=== PATIENT | female | born 1935 | race Caucasian/White ===

== ENCOUNTER 2018-03-24 13:14 | Inpatient (IN) | payer OTHER ==
[2018-03-24] VITALS (8 sets, daily range): BP systolic 115–142; BP diastolic 47–72
--- NOTE | ~2018-03-24 | EKG ---
[place], [place] ELECTROCARDIOGRAM REPORT NAME: ERI PATEL UNIT #: [id number] ROOM: 511 DOCTOR: PADMA DRAFT REPORT BIRTHDATE: [birth year] [facility] Test Date: 2018-03-24 Test Time: 13:55:09 Pat Name: ERI PATEL Department: Room: 511 Gender: F Environmental Conservation Officer: Ana Madsen : 1935 Requested By: ELIZA GOMEZ Order Number: [id number] Reading MD: John Calle MD Measurements Intervals [place] Rate: 79 P: 64 RI: 173 QRS: 71 QRSD: 88 T: 71 QT: 366 QTc: 420 Interpretive Statements Sinus rhythm Electronically Signed On 03-25-2018 16:15:42 PST by John Calle MD CM:EKGRPT:ELECTROCARDIOGRAM REPORT [id number] ELIZA GOMEZ MD EPIPHANY DRAFT REPORT ELIZA GOMEZ MD
[~2018-03-24 13:14] MED LIST: KEFLEX500 MG PO; LISINOPRIL HCTZ1 TA1 PO
[2018-03-24 14:11] LABS: BASO # 0.1 10*3/uL (0.0-0.1); BASO % 0.7 % (0.0-1.0); EOS # 0.2 10*3/uL (0.0-0.4); EOS % 2.5 % (1.0-4.0); HEMATOCRIT 37.9 % (37.0-47.0); HEMOGLOBIN 12.8 g/dl (12.0-16.0); LYMPH # 1.5 10*3/uL (1.3-4.4); LYMPH % 18.2 % (27.0-41.0); MEAN CELL VOLUME 90.9 fl (81.0-99.0); MEAN CORPUSCULAR HGB 30.7 pg (27.0-31.0); MEAN CORPUSCULAR HGB CONC 33.8 g/dl (33.0-37.0); MEAN PLATELET VOLUME 9.6 fl (9.6-12.3); MONO # 0.8 10*3/uL (0.1-1.0); MONO % 9.7 % (3.0-9.0); NEUT # 5.7 10*3/uL (2.3-7.9); NEUT % 68.7 % (47.0-73.0); PLATELET COUNT AUTOMATED 329 10*3/uL (130-400); RED BLOOD COUNT 4.17 10*6/uL (4.10-5.10); RED CELL DISTRI WIDTH 14.3 % (0-14.5); WHITE BLOOD COUNT 8.4 10*3/uL (4.8-10.8)
[2018-03-24 14:29] LABS: ALBUMIN 3.8 gm/dl (3.1-4.5); ALKALINE PHOSPHATASE 76 U/L (45-117); BUN 27 mg/dl (7-24); CHLORIDE 101 mmol/L (98-107); CREATININE 0.79 mg/dL (0.55-1.02); POTASSIUM 3.7 mmol/L (3.5-5.1); SGOT/AST 17 IU/L (3-35); SGPT/ALT 18 U/L (12-78); SODIUM 136 mmol/L (136-145); TOTAL PROTEIN 8.1 gm/dL (6.4-8.2)
[2018-03-24 14:44] LABS: TROPONIN I < 0.015 ng/ml (<0.045)
[2018-03-24] MEDS ORDERED: ATORVASTATIN CA10 M1 PO (18:17)
[2018-03-24] MEDS ORDERED: METFORMIN HYD1000 MG PO (18:17)
[2018-03-24] MEDS ORDERED: GEMFIBROZIL600 MG PO (18:19)
--- NOTE | 2018-03-24 18:37 | NUR ---
DR. MOON'S ANSWERING SERVICE NOTIFIED OF CONSULT.
--- NOTE | 2018-03-24 18:39 | NUR ---
Time: 1839 A 83 year old FEMALE admitted to 5E under services of REMIGIO FRAZIER DO. Pt. arrived via bed from ER. Chief complaint: FALL DOWN STAIRS, RIGHT HUMERAL HEAD FX.. GLENN OLEA
--- NOTE | 2018-03-24 19:09 | NUR ---
PTS HOME MEDICATIONS VERIFIED WITH PATIENT. DR GONZALEZ NOTIFIED.
--- NOTE | 2018-03-24 19:56 | NUR ---
Medicated with Charlotte po prn for c/o rt shoulder pain. Will monitor effectiveness. Call light within reach.
--- NOTE | 2018-03-24 20:56 | NUR ---
Patient resting quietly in bed with eyes closed. Orange effective. Will continue to monitor. Call light within reach.
--- NOTE | 2018-03-24 22:59 | NUR ---
Medicated with Dilaudid IV prn and Zofran IV prn for c/o arm pain and nausea. Will monitor effectiveness. Call light within reach.
[2018-03-25] VITALS: BP 93/50
--- NOTE | 2018-03-25 02:13 | NUR ---
24 HR chart check completed.
[2018-03-25 04:18] LABS: BILIRUBIN NEGATIVE (NEGATIVE); BLOOD NEGATIVE (NEGATIVE); CLARITY CLEAR (CLEAR); COLOR YELLOW (YELLOW); GLUCOSE NEGATIVE (NEGATIVE); KETONE NEGATIVE (NEGATIVE); LEUKO ESTERASE TRACE (NEGATIVE); NITRITE NEGATIVE (NEGATIVE); PH 5.5 (5.0-9.0); SPECIFIC GRAVITY >= 1.030 (1.005-1.030); UROBILINOGEN 0.2 E.U./dl (0.2-1.0)
[2018-03-25 04:24] LABS: BACTERIA TRACE; HYALINE CAST 15-20
[2018-03-25 07:13] LABS: BASO % 0.3 % (0.0-1.0); EOS % 0.4 % (1.0-4.0); HEMATOCRIT 35.1 % (37.0-47.0); HEMOGLOBIN 11.5 g/dl (12.0-16.0); LYMPH # 1.6 10*3/uL (1.3-4.4); LYMPH % 15.3 % (27.0-41.0); MEAN CELL VOLUME 93.6 fl (81.0-99.0); MEAN CORPUSCULAR HGB 30.7 pg (27.0-31.0); MEAN CORPUSCULAR HGB CONC 32.8 g/dl (33.0-37.0); MEAN PLATELET VOLUME 9.9 fl (9.6-12.3); MONO # 1.1 10*3/uL (0.1-1.0); MONO % 10.6 % (3.0-9.0); NEUT # 7.6 10*3/uL (2.3-7.9); NEUT % 73.1 % (47.0-73.0); PLATELET COUNT AUTOMATED 280 10*3/uL (130-400); RED BLOOD COUNT 3.75 10*6/uL (4.10-5.10); RED CELL DISTRI WIDTH 14.4 % (0-14.5); WHITE BLOOD COUNT 10.4 10*3/uL (4.8-10.8)
[2018-03-25 07:29] LABS: BUN 29 mg/dl (7-24); CHLORIDE 103 mmol/L (98-107); CREATININE 0.81 mg/dL (0.55-1.02); POTASSIUM 4.1 mmol/L (3.5-5.1); SODIUM 136 mmol/L (136-145)
[2018-03-25 07:34] LABS: CHOLESTEROL 146 mg/dL (<200); FREE T4 0.87 ng/dl (0.76-1.46); HDL CHOLESTEROL 62 mg/dl (40-60); LDL CHOLESTEROL 70 mg/dL (9-159); PHOSPHOROUS 4.2 mg/dL (2.5-4.9); TRIGLYCERIDES 68 mg/dl (<150); VLDL CHOLESTEROL 14 mg/dL (6-40)
[2018-03-25 07:50] LABS: ACT PARTIAL THROMBO TIME 22.6 SECONDS (20.8-31.5)
[2018-03-25 08:00] VITALS: BP 102/50
[2018-03-25 08:13] LABS: VITAMIN D, 25-HYDROXY 47.9 ng/mL (30-100)
--- NOTE | 2018-03-25 08:15 | NUR ---
PT MEDICATED WITH PRN DILAUDID FOR C/O RIGHT SHOULDER PAIN. PT RATES PAIN 11/16. WILL REACCESS.
--- NOTE | 2018-03-25 08:15 | NUR ---
PT MEDICATED WITH PRN DILAUDID FOR C/O RIGHT ARM PAIN. PT RATES PAIN 11/16. BRENT LREACCESS.
--- NOTE | 2018-03-25 09:15 | NUR ---
PRN DILAUDID SOMEWHAT EFFECTIVE PER PT. RATES PAIN 6/10 AND MEDICATED WITH PRN NORCO AT THIS TIME.
--- NOTE | 2018-03-25 10:00 | NUR ---
PRN NORCO EFFECTIVE PER PT.
--- NOTE | 2018-03-25 11:39 | NUR ---
Door Liner Helper in to talk to patient. Patient states lives at HOME with DAUGHTER AND GRANDDAUGHTER. There are SEVERAL steps in the home. Physician: RASHAWN Pharmacy: [facility] Home health services: NONE Patient's level of ADLs: INDEPENDENT Patient has working utilities: YES DME: NONE Follow-up physician's appointment after d/c: WILL BE MADE BY HOSPITALIST NURSE DIRECTOR ON DISCHARGE Does patient want to access PORTAL?: NO Discharge plan PT STATES SHE LIVES AT HOME WITH HER DAUGHTER AND GRAND DAUGHTER. TALKED WITH PT ABOUT HOME HEALTH OR SNF PLACEMENT ON DISCHARGE, BUT SHE WANTS TO TALK TO HER DAUGHTER ABOUT IT BEFORE MAKING A DECISION. TOLD PT I WOULD CHECK BACK WITH HER IN THE MORNING AFTER SHE HAS A CHANCE TO TALK WITH DAUGHTER. WILL CONTINUE TO FOLLOW.. ERROL MENDOZA
--- NOTE | 2018-03-25 12:00 | NUR ---
DR. MOON IN TO SEE PATIENT.
--- NOTE | 2018-03-25 13:00 | NUR ---
ERI PATEL [id number] Please refer to the physician's history and physical for past medical history, comorbid conditions, and allergies. Diagnosis: FALL DOWN STAIRS, RIGHT HUMERAL FRACTURE, HEAD Luis Alberto Score: 20,LOW OR NO RISK WOUND DESCRIPTIONS: Location of the wound: middle of forehead Type of wound: laceration Thickness: Partial Size: 2.7cm x 0.2cm x <0.1cm Tunneling: none Undermining: none Sinus Tract: none Presence of Exudate: Serosanguineous Amount: Light Color: Red Odor: None Periwound Skin Appearance: Normal Wound edges: approximated with 6 sutures Pain (associated with wound): none at time of assessment How does patient state this happened? pt stated she fell over an area rug Surface the patient is resting on: Isoflex SKIN PREVENTION RECOMMENDATION: 1. Pressure redistribution support surface as appropriate 2. Elevate heels 3. Remove boots/TEDS every shift and reapply 4. Head of bed 30 degrees as tolerated 5. Assess nutrition and hydration 6. Manage moisture 7. Avoid the use of containment devices while in bed 8. Use absorptive products on surfaces limit layers of linens on bed 9. Turn and reposition every 1-2 hours in bed and every 1 hour in chair as tolerated 10. Weight shifts every 15 minutes while up in chair 11. Offloading with pillows or device to keep heels elevated off bed 12. Monitor skin at least every shift 13. Inspect under medical devices twice a day WOUND TREATMENT RECOMMENDATIONS: Cleanse middle of forehead with nss and apply non-adherent dressing daily and prn for soiling.
--- NOTE | 2018-03-25 13:31 | NUR ---
Dr. Yanez notified of wound care recommendations.
--- NOTE | 2018-03-25 14:46 | NUR ---
PHYSICAL THERAPY PAtient respectfully declines PT this date. Thank you for this referral. Vibha Salter,PT
--- NOTE | 2018-03-25 15:23 | NUR ---
PT MEDICATED WITH PRN DILAUDID FOR C/O RIGHT SHOULDER. PT RATES PAIN 10/10. WILL REACCESS.
--- NOTE | 2018-03-25 15:32 | NUR ---
PHYSICAL THERAPY Attempted PT evalaution again this date. PAtient again respectfully declines PT this date. Thank you for this referral. Vibha Salter,PT
--- NOTE | 2018-03-25 15:35 | NUR ---
Occupational Therapy evaluation offered this pm. Patient's son visiting and patient requested OT at a later date. Mercedes Padilla OTR/l
[2018-03-25 16:00] VITALS: BP 102/53
--- NOTE | 2018-03-25 16:00 | NUR ---
PRN DILAUDID EFFECTIVE PER PT. PAIN TOLERABLE AT PRESENT TIME.
--- NOTE | 2018-03-25 16:25 | NUR ---
PATIENT RECEIVED NORCO FOR PAIN RATED 7/10 IN THE RIGHT SHOULDER.
--- NOTE | 2018-03-25 17:00 | NUR ---
PRN NORCO EFFECTIVE PER PT. PT RESTING COMFORTABLY IN BED. RESPIRATIONS EASY AND REGULAR. WILL CONTINUE TO MONITOR.
--- NOTE | 2018-03-25 19:55 | NUR ---
24 HR chart check completed.
--- NOTE | 2018-03-25 20:00 | NUR ---
RESTING IN BED. BANDAID INTACT TO FOREHEAD COVERING SUTURES. EYES ECCHYMOTIC. RESPIRATIONS EASY. LUNGS DIMINISHED, CLEAR. PULSE OX 96% RA. SLING IN PLACE TO RIGHT SHOULDER/ARM - OFFERED ICE, DECLINED. TEDS/SCDS IN PLACE. CALL LIGHT WITHIN REACH. NO VOICED COMPLAINTS. BED ALARM MAINTAINED FOR SAFETY
--- NOTE | 2018-03-25 21:06 | NUR ---
MEDICATED WITH NORCO PER PRN ORDER FOR COMPLAINTS OF RIGHT ARM PAIN RATING A 6. CALL LIGHT WITHIN REACH. WILL MONITOR FOR EFFECTIVENESS
--- NOTE | 2018-03-25 22:00 | NUR ---
EARLIER MEDS APPEAR EFFECTIVE. RESTING WITH EYES CLOSED. RESPIRATIONS EASY. CALL LIGHT WITHIN REACH. BED ALARM MAINTAINED FOR SAFETY
[2018-03-26] VITALS: BP 111/51
--- NOTE | 2018-03-26 00:36 | NUR ---
MEDICATED WITH NORCO PER PRN ORDER FOR COMPLAINTS OF RIGT SHOULDER/ARM PAIN RATING A 7. CALL LIGHT WITHIN REACH. WILL MONITOR FOR EFFECTIVENESS
--- NOTE | 2018-03-26 01:30 | NUR ---
MEDS EFFECTIVE. SLEEPING. RESPIRATIONS EASY. CALL LIGHT WITHIN REACH. BED ALARM MAINTAINED FOR SAFETY
--- NOTE | 2018-03-26 04:00 | NUR ---
ASSISTED TO BR AND RETURNED TO BED. DENIES NEED FOR PAIN MEDS AT THIS TIME
[2018-03-26 06:14] LABS: BASO % 0.2 % (0.0-1.0); EOS # 0.2 10*3/uL (0.0-0.4); EOS % 1.5 % (1.0-4.0); HEMATOCRIT 33.6 % (37.0-47.0); HEMOGLOBIN 11.2 g/dl (12.0-16.0); LYMPH # 1.3 10*3/uL (1.3-4.4); LYMPH % 13.3 % (27.0-41.0); MEAN CELL VOLUME 92.6 fl (81.0-99.0); MEAN CORPUSCULAR HGB 30.9 pg (27.0-31.0); MEAN CORPUSCULAR HGB CONC 33.3 g/dl (33.0-37.0); MEAN PLATELET VOLUME 9.8 fl (9.6-12.3); MONO # 0.9 10*3/uL (0.1-1.0); MONO % 9.3 % (3.0-9.0); NEUT # 7.3 10*3/uL (2.3-7.9); NEUT % 75.5 % (47.0-73.0); PLATELET COUNT AUTOMATED 262 10*3/uL (130-400); RED BLOOD COUNT 3.63 10*6/uL (4.10-5.10); RED CELL DISTRI WIDTH 14.3 % (0-14.5); WHITE BLOOD COUNT 9.7 10*3/uL (4.8-10.8)
--- NOTE | 2018-03-26 06:26 | NUR ---
MEDICATED WITH NORCO PER PRN ORDER FOR COMPLAINTS OF RIGHT SHOULDER/ARM PAIN RATING A 4. CALL LIGHT WITHIN REACH. WILL MONITOR FOR EFFECTIVENSS. BED ALARM MAINTAINED FOR SAFETY
[2018-03-26 06:43] LABS: BUN 27 mg/dl (7-24); CHLORIDE 101 mmol/L (98-107); CREATININE 0.68 mg/dL (0.55-1.02); POTASSIUM 3.5 mmol/L (3.5-5.1); SODIUM 135 mmol/L (136-145)
[2018-03-26 08:00] VITALS: BP 108/60
--- NOTE | 2018-03-26 08:10 | NUR ---
PT RESTING IN BED. ASSISTED UP TO BATHROOM AND BACK TO BED. RESP-EASY AND REGULAR. TEDS/SCD'S ON. OXYGEN IN USE. PT PULSE OX AFTER WALKING DROPPED 78%. INCREASED OXYGEN TO 4LITERS UP TO PULSE OX 92%. CALL LIGHT IN REACH. WILL CON'T TO MONITOR. SEE SHIFT ASSESSMENT.
--- NOTE | 2018-03-26 08:29 | NUR ---
Occupational Therapy evaluation attempted this date. Patient not appropriate at this time due to low O2 stats after using restroom. Nurse notified and aware. Will attempt a later date/time Thank you for this referral, Eden Mercer OTR/L
--- NOTE | 2018-03-26 09:00 | NUR ---
TOLERATED ROUTINE MED WITH NOPROBLEM. HELD LISINOPRIL AND HCTZ BP 108/60. WILL NOTIFY DOCTOR. CALL LIGHT IN REACH.
--- NOTE | 2018-03-26 09:23 | NUR ---
Occupational Thearpy evaluation completed this date on 5th floor with full eval to follow. Low complexity level 58562. Precautions: fall risk, NWM right arm, sling, min-mod Assistance, alarm, IV site, decreased O2 stats (4 L). Work on safety with right arm (NWB), functional mobility, dressing, feeding. Recommend return home with family and therapy and nursing if 24/7 care available. Thank you for this referral, Eden Mercer OTR/L
--- NOTE | 2018-03-26 10:07 | NUR ---
CALLED [facility] AWARE PT BLOOD PRESSURE. WILL BE UP TO SEE PT.
--- NOTE | 2018-03-26 10:16 | NUR ---
PHYSICAL THERAPY Initial PT eval done at bedside. Moderate level complexity (76901) due to chart review, acuity level, tests done. Pt requesting to be dc home but will need home nursing/therapy as well as a hemiwalker. Please see eval for status, POC, goals. Reina Cesar, PT
--- NOTE | 2018-03-26 11:02 | NUR ---
CALLED PT SAULO CARROLL LISTED , STATES SHE IS ON HER WAY TO HOSPITAL. TOLD HER I WOULD MEET HER IN THE ROOM AND TALK TO HER.
--- NOTE | 2018-03-26 12:02 | NUR ---
IN ROOM TO TALK TO PT AND DAUGHTER. DAUGHTER STATES THEY HAVE HELP AT HOME AND DO NOT WANT HOME HEALTH AT THIS TIME.
--- NOTE | 2018-03-26 12:04 | NUR ---
FAXED SCRIP FOR TEE WALKER TO [facility].
--- NOTE | 2018-03-26 12:25 | NUR ---
BSG-111, [place]. PT C/O RIGHT ARM PAIN, RATES PAIN 5 ON PAIN SCALE 0-10. MEDICATED WITH NORCO PO PER PRN ORDER, SEE EMAR. CALL LIGHT IN REACH. VISITORS AT HER SIDE. CALL LIGHT IN REACH.
--- NOTE | 2018-03-26 12:30 | NUR ---
[facility] LONG IN AND SPOKE WITH PT AND PT AND DAUGHTER IS AGREEING TO HOME HEALTH NOW. WAITING FOR ORDER.
[2018-03-26] MEDS ORDERED: HYDROCODONE-AC1 EAC1 PO (12:39)
--- NOTE | 2018-03-26 12:49 | NUR ---
Patient is requesting that [facility] [place] [facility] remove her sutures when she is discharged. Roseanna Johnston RN in hospitalists office made aware
--- NOTE | 2018-03-26 12:49 | NUR ---
FAMILY GIVEN LIST OF HOME HEALTH. THEY CHOSE [facility].
--- NOTE | 2018-03-26 13:10 | NUR ---
REFERRAL SENT TO [facility].
--- NOTE | 2018-03-26 13:15 | NUR ---
[facility] ARE UANBLE TO GET PT TEE WALKER. THEY DO NOT HAVE THEM.
--- NOTE | 2018-03-26 14:09 | NUR ---
SCRIP FOR TEE WALKER AND HOSPITAL BED SENT TO [facility].
--- NOTE | 2018-03-26 14:25 | NUR ---
PT ASSISTED TO BATHROOM WITH GRANDDAUGHTER WITH CANE. AFTER RETURNING PULSE OX DONE 86-88%RA. OXYGEN APPLIED 2LITERS PULSE OX 94-96%. STATES PAIN MEDICATION HELPS. CALL LIGHT IN REACH.
--- NOTE | 2018-03-26 14:45 | NUR ---
PT IS IN NEED OF TEE WALKER DUE TO MOBILITY LIMITATIONS THAT IMPAIRS THE ACTIVITY OF DAILY LIVING IN THE HOME. PATIENT CAN USE A WALKER SAFELY AND THE FUNCTIONAL MOBILITY DEFICIT CAN BE SUFFICIENTLY RESOLVED WITH USE OF WALKER. A WALKER IS A MEDICAL NECESSITY FOR PATIENT CARE AND THEIR ABILITY TO THRIVE.
--- NOTE | 2018-03-26 15:15 | NUR ---
Patient qualifies for home oxygen. Pre Ambulation: SPO2: 94%, HR: 82, BP: 110/62 Ambulation: Started patient on Room Air. Patient quickly desatted to 85% immediately exiting the room and complained of shortness of breath. Increased oxygen flow to 2LPM. Patients SPO2 did not rise. Increased patient to 3LPM, and patient maryam to 90% SPO2. I then continued to walk to patient, and after roughly 10 feet the patient desatted to 86%. I turned her to 4LPM. Patient SPO2 recovered to 90% and remained at 90% for the remainder of the walk. Her heart rated stayed between 80-94 BPM. Post Ambulation: Patient resting for 5 minutes. SPO2: 93% on 4L, HR: 89, BP: 122/63 Pt agrees to [employer] as her home oxygen company.
--- NOTE | 2018-03-26 15:16 | NUR ---
PHYSICAL THERAPY Patient presented to therapy in sitting position with 3 family members present in room visitng and report of L shoulder/ UE pain. Patient agrees to therapy session. Patient was identifed by name and . Patient is only using spO2 as needed at 3 liters. Patient STS transfer with SBA. Patient ambulated 60' x 1 with quad cane and 3 liters of spO2 with CGA X 1. Patient then STS transfer from low chair , again with SBA. Patient ambulated 80' x 1 TO [place] with and ascended and descended 10 steps with CGA X 1 with use of hand rail and no spO2. PATIENT AMBULATED 80' X 1 BACK to room and transferred to chair with CGA X 1. Patient was left in sitting position with call light within reach and repirtory therapist in room with patient. Patient was 1:1 with this RIM FIRE PRIMING TOOL SETTER for 23 minutes total. MECHELLE MARIN RIM FIRE PRIMING TOOL SETTER
--- NOTE | 2018-03-26 15:30 | NUR ---
PT SITTING UP IN CHAIR WITH FAMILY AT HER SIDE. BSG-102, SEE EMAR. C/O RIGHT ARM PAIN, RATES PAIN 5 ON PAIN SCALE 0-10. MEDICATED WITH NORCO PO PER PRN ORDER, SEE EMAR. CALL LIGHT IN REACH. SEE SHIFT ASSESSMENT.
[2018-03-26 16:00] VITALS: BP 100/58
--- NOTE | 2018-03-26 16:00 | NUR ---
RESPIRATORY ON THE FLOOR TO [facility] FOR HOME OXYGEN. STATES PT QUALIFIES AT 4 LITERS. THEY WILL TAKE CARE OF GWETTING PT SET UP. WAITING TO BE DISCHARGED FOR OXYGEN TANK.
[2018-03-26] MEDS ORDERED: MIRALAX POWDER17 G1 PO (16:02)
[2018-03-26] MEDS ORDERED: COLACE100 MG PO (16:03)
--- NOTE | 2018-03-26 16:15 | NUR ---
PT RESTING IN CHAIR. STATES PAIN MEDICATION HELPS. CALL LIGHT IN REACH.
--- NOTE | 2018-03-26 17:04 | NUR ---
Discharge instructions reviewed with patient/family. Patient receptive and verbalizes understanding. Follow-up care arranged. Written instructions given to patient/family. [place] REMOVED 2X2 APPLIED. FAMILY AT HER SIDE. ESCORTED VIA WHEELCHAIR FOR DISCHARGE. NINFA TRIANA R
--- NOTE | 2018-04-05 08:14 | NUR ---
PHYSICAL THERAPY CO-SIGN I approve of the Phyical Therapy notes written above. OLEGARIO GUZMAN PT
== END 2018-03-26 17:04 | disposition home health service (06) | DRG 562 ==
LOC: ED 13:14 → EDHOLD 17:50 → 5E 17:50
PROVIDERS: Emergency Medicine; Internal Medicine; ADMIT Internal Medicine
PROC: 0HQ1XZZ Repair Face Skin, External Approach (ICD-10-PCS; principal; 2018-03-24)
DX: S42.211A Unspecified displaced fracture of surgical neck of right humerus, initial encounter for closed fracture (principal); I62.03 Nontraumatic chronic subdural hemorrhage; J98.11 Atelectasis; W10.8XXA Fall (on) (from) other stairs and steps, initial encounter; S01.81XA Laceration without foreign body of other part of head, initial encounter; E11.65 Type 2 diabetes mellitus with hyperglycemia; I10 Essential (primary) hypertension; E78.5 Hyperlipidemia, unspecified; E66.3 Overweight; M85.80 Other specified disorders of bone density and structure, unspecified site; F17.210 Nicotine dependence, cigarettes, uncomplicated; Z79.84 Long term (current) use of oral hypoglycemic drugs; Y93.89 Activity, other specified; Y92.89 Other specified places as the place of occurrence of the external cause; Z71.6 Tobacco abuse counseling; Y99.8 Other external cause status; Z79.899 Other long term (current) drug therapy

== ENCOUNTER → 2018-03-31 | Outpatient (CLI) | payer OTHER ==
[~2018-03-31] MED LIST changes: +ATORVASTATIN CA10 M1 PO; +COLACE100 MG PO; +GEMFIBROZIL600 MG PO; +HYDROCODONE-AC1 EAC1 PO; +METFORMIN HYD1000 MG PO; +MIRALAX POWDER17 G1 PO; +Meclizine25 MG PO; +TRAMADOL HCL50 MG PO; +ZESTORETIC 10-1 EACH PO; +ZESTRIL10 MG PO
== END | disposition home or self-care (01) ==
LOC: ORTHO 02:15
DX: S42.301A Unspecified fracture of shaft of humerus, right arm, initial encounter for closed fracture (principal); M81.0 Age-related osteoporosis without current pathological fracture; X58.XXXA Exposure to other specified factors, initial encounter; Y93.89 Activity, other specified; Y92.89 Other specified places as the place of occurrence of the external cause; Y99.8 Other external cause status

== ENCOUNTER → 2018-04-22 | Outpatient (CLI) | payer OTHER | END | disposition home or self-care (01) | LOC: ORTHO 02:08 | DX: S42.254D Nondisplaced fracture of greater tuberosity of right humerus, subsequent encounter for fracture with routine healing (principal); S42.211D Unspecified displaced fracture of surgical neck of right humerus, subsequent encounter for fracture with routine healing; X58.XXXD Exposure to other specified factors, subsequent encounter ==

== ENCOUNTER 2018-04-23 13:49 | Inpatient (IN) | payer OTHER ==
[~2018-04-23] VITALS: Ht 152.4 cm; Wt 64.5 kg
--- NOTE | ~2018-04-23 | EKG ---
[place], [place] ELECTROCARDIOGRAM REPORT NAME: ERI PATEL UNIT #: [id number] ROOM: DOCTOR: PADMA DRAFT REPORT BIRTHDATE: [birth year] [facility] Test Date: 2018-04-23 Test Time: 14:08:44 Pat Name: ERI PATEL Department: Room: Gender: F Cell Tuber Machine: : 1935 Requested By: HAMIDA PAYNE Order Number: [id number] Reading MD: Measurements Intervals [place] Rate: 90 P: 39 MS: 203 QRS: 46 QRSD: 93 T: 60 QT: 379 QTc: 464 Interpretive Statements Sinus rhythm Probable left atrial enlargement Probable left ventricular hypertrophy Baseline wander in lead(s) V4 Compared to ECG 03/24/2018 13:55:09 No significant changes CM:EKGRPT:ELECTROCARDIOGRAM REPORT 1408 1236 HAMIDA COSTELLO DRAFT REPORT HAMIDA PAYNE DO
--- NOTE | ~2018-04-23 | EKG ---
[place], [place] ELECTROCARDIOGRAM REPORT NAME: ERI PATEL UNIT #: [id number] ROOM: 521 DOCTOR: PADMA DRAFT REPORT BIRTHDATE: [birth year] [facility] Test Date: 2018-04-24 Test Time: 04:10:04 Pat Name: ERI PATEL Department: Room: 521 1 Gender: F Forest Firefighter: : 1935 Requested By: ODESSA HERRERA Order Number: [id number] Reading MD: Measurements Intervals [place] Rate: 86 P: 47 VT: 166 QRS: 60 QRSD: 92 T: 54 QT: 379 QTc: 454 Interpretive Statements Sinus rhythm Ventricular trigeminy Compared to ECG 03/24/2018 13:55:09 Ventricular premature complex(es) now present CM:EKGRPT:ELECTROCARDIOGRAM REPORT 0410 0111 ODESSA HERRERA EPIPHANY DRAFT REPORT ODESSA HERRERA
[~2018-04-23 13:49] MED LIST changes: -Meclizine25 MG PO; -TRAMADOL HCL50 MG PO; -ZESTORETIC 10-1 EACH PO; -ZESTRIL10 MG PO
[2018-04-23 13:50] VITALS: BP 128/62
[2018-04-23 14:50] LABS: BASO % 0.4 % (0.0-1.0); EOS # 0.1 10*3/uL (0.0-0.4); EOS % 0.9 % (1.0-4.0); HEMATOCRIT 33.8 % (37.0-47.0); HEMOGLOBIN 11.5 g/dl (12.0-16.0); LYMPH % 14.4 % (27.0-41.0); MEAN CELL VOLUME 91.4 fl (81.0-99.0); MEAN CORPUSCULAR HGB 31.1 pg (27.0-31.0); MEAN PLATELET VOLUME 9.4 fl (9.6-12.3); MONO # 0.4 10*3/uL (0.1-1.0); MONO % 5.4 % (3.0-9.0); NEUT # 5.3 10*3/uL (2.3-7.9); NEUT % 78.8 % (47.0-73.0); PLATELET COUNT AUTOMATED 344 10*3/uL (130-400); RED CELL DISTRI WIDTH 13.5 % (0-14.5); WHITE BLOOD COUNT 6.8 10*3/uL (4.8-10.8)
[2018-04-23 15:09] LABS: ALBUMIN 3.6 gm/dl (3.1-4.5); ALKALINE PHOSPHATASE 75 U/L (45-117); BUN 25 mg/dl (7-24); CHLORIDE 100 mmol/L (98-107); CREATININE 0.63 mg/dL (0.55-1.02); LIPASE 194 U/L (73-393); POTASSIUM 3.5 mmol/L (3.5-5.1); SGOT/AST 22 IU/L (3-35); SGPT/ALT 22 U/L (12-78); SODIUM 136 mmol/L (136-145); TOTAL PROTEIN 7.7 gm/dL (6.4-8.2)
[2018-04-23 15:09] LABS: BILIRUBIN NEGATIVE (NEGATIVE); BLOOD TRACE-INTACT (NEGATIVE); CLARITY SL CLOUDY (CLEAR); COLOR YELLOW (YELLOW); GLUCOSE NEGATIVE (NEGATIVE); KETONE 2+ (NEGATIVE); LEUKO ESTERASE NEGATIVE (NEGATIVE); NITRITE NEGATIVE (NEGATIVE); SPECIFIC GRAVITY >= 1.030 (1.005-1.030); UROBILINOGEN 0.2 E.U./dl (0.2-1.0)
[2018-04-23 15:11] LABS: TROPONIN I < 0.015 ng/ml (<0.045)
--- NOTE | 2018-04-23 15:18 | NUR ---
GIVEN ICE CHIPS BY DAUGHTER.
[2018-04-23 15:23] LABS: WBC 0-2 wbc/hpf (0-5)
[2018-04-23 15:24] LABS: BACTERIA 1+
--- NOTE | 2018-04-23 16:42 | NUR ---
SLEEPING, RESPS EASY. DAUGHTER AT BEDSIDE. COMPAZINE SEEMS EFFECTIVE FOR NAUSE/VOMITING.
[2018-04-23 17:11] VITALS: BP 115/61
--- NOTE | 2018-04-23 17:54 | NUR ---
REPOSITIONED IN BED FOR COMFORT.
[2018-04-23 18:29] VITALS: BP 127/46
[2018-04-23 20:07] VITALS: BP 111/51
--- NOTE | 2018-04-23 20:07 | NUR ---
A 83, admitted to 5E, under the services of REMIGIO Guillory DO with a diagnosis of ENTERITIS, GENERALIZED WEAKNESS. Chief complaint is NAUSEA AND VOMITING. Patient arrived via bed from ER. Initial assessment completed. Vital signs taken and recorded. REMIGIO GUILLORY DO notified of admission to the unit. Orders received. See assessment for past medical history, medications and allergies. Patient and/or family oriented to unit. [facility] visitation policy reviewed. Clothing/patient valuable form completed. ALEA COHN
[2018-04-23] MEDS ORDERED: ZESTRIL10 MG PO (21:35)
[2018-04-23] MEDS ORDERED: ZESTORETIC 10-1 EACH PO (21:38)
[2018-04-23] MEDS ORDERED: TRAMADOL HCL50 MG PO (21:39)
--- NOTE | 2018-04-23 22:20 | NUR ---
DR HERRERA NOTIFIED MED REC UP TO DATE VIA HOME MED LIST.
[2018-04-24] VITALS: BP 109/56
--- NOTE | 2018-04-24 01:19 | NUR ---
PATIENT RESTING IN BED WITH EYES CLOSED. RESPIRATIONS ARE EASY AND REGULAR. NO DISTRESS IS NOTED. CALL LIGHT IS WITHIN REACH. BED ALARM INTACT. WILL CONTINUE TO MONITOR.
--- NOTE | 2018-04-24 02:06 | NUR ---
PRN NORCO GIVEN FOR COMPLAINTS OF RIGHT ARM PAIN RATED 7/10. WILL EVALUATE EFFECTIVENESS. CALL LIGHT IS WITHIN REACH.
--- NOTE | 2018-04-24 03:05 | NUR ---
PRN NORCO APPEARS TO BE EFFECTIVE. PATIENT RESTING COMFORTABLY IN BED WITH EYES CLOSED. RESPIRATIONS ARE EASY AND REGULAR. NO DISTRESS IS NOTED. CALL LIGHT IS WIIHIN REACH. WILL MONITOR.
--- NOTE | 2018-04-24 03:50 | NUR ---
DR HERRERA NOTIFIED OF PATIENT HAVING FREQUENT PVS'S WITH OCCASIONAL TRIPLETS. PER DR HERRERA ORDER EKG.
--- NOTE | 2018-04-24 04:13 | NUR ---
DR HERRERA NOTIFIED OF EKG RESULTS SHOWING VENTRICULAR TRIGEMENY. PREVIOUS EKG FROM ER SHOWED NSR WITH NO PVC'S. NO FURTHER ORDERS AT THIS TIME.
[2018-04-24 06:42] LABS: BASO % 0.5 % (0.0-1.0); EOS # 0.2 10*3/uL (0.0-0.4); EOS % 2.8 % (1.0-4.0); HEMATOCRIT 31.3 % (37.0-47.0); HEMOGLOBIN 10.4 g/dl (12.0-16.0); LYMPH # 1.8 10*3/uL (1.3-4.4); LYMPH % 21.2 % (27.0-41.0); MEAN CELL VOLUME 91.3 fl (81.0-99.0); MEAN CORPUSCULAR HGB 30.3 pg (27.0-31.0); MEAN CORPUSCULAR HGB CONC 33.2 g/dl (33.0-37.0); MEAN PLATELET VOLUME 9.7 fl (9.6-12.3); MONO % 11.2 % (3.0-9.0); NEUT # 5.5 10*3/uL (2.3-7.9); PLATELET COUNT AUTOMATED 306 10*3/uL (130-400); RED BLOOD COUNT 3.43 10*6/uL (4.10-5.10); RED CELL DISTRI WIDTH 13.6 % (0-14.5); WHITE BLOOD COUNT 8.6 10*3/uL (4.8-10.8)
[2018-04-24 06:57] LABS: ALBUMIN 3.1 gm/dl (3.1-4.5); CHLORIDE 104 mmol/L (98-107); POTASSIUM 3.1 mmol/L (3.5-5.1); SGOT/AST 18 IU/L (3-35); SGPT/ALT 21 U/L (12-78); SODIUM 140 mmol/L (136-145)
[2018-04-24 07:00] LABS: ALKALINE PHOSPHATASE 61 U/L (45-117); CREATININE 0.43 mg/dL (0.55-1.02); PHOSPHOROUS 2.7 mg/dL (2.5-4.9); TOTAL PROTEIN 6.7 gm/dL (6.4-8.2)
[2018-04-24 07:05] LABS: BUN 15 mg/dl (7-24)
[2018-04-24 08:00] VITALS: BP 104/59
--- NOTE | 2018-04-24 09:27 | NUR ---
REFUSED LOVENOX THIS AM. EXPLAINED RISKS AND BENEFITS. PT STILL REFUSED.
[2018-04-24 09:31] VITALS: BP 110/60
[2018-04-24 12:00] VITALS: BP 119/52
--- NOTE | 2018-04-24 14:59 | NUR ---
PT C/O NAUSEA AT THIS TIME. PRN ZOFRAN GIVEN. PT STATES :IT JUST CAME ON". CALL LIGHT IN REACH. EMESIS BASIN IN REACH. IVF GOING. BED ALARM ON.
--- NOTE | 2018-04-24 15:10 | NUR ---
NOTIFIED OF NAUSEA FOLLOWING ADVANCEMENT TO FULL LIQUID DIET. NEW ORDER FOR CLEAR LIQUIDS ONLY OBTAINED AND ORDERED TO SCHEDULE ZOFRAN. SEE MAR.
--- NOTE | 2018-04-24 15:29 | NUR ---
ZOFRAN EFFECTIVE, PT SLEEPING. NO FURTHER SXS OF DISTRESS/NAUSEA. SAMIA LIGHT IN REACH. DAUGHTER AT BEDSIDE.
[2018-04-24 16:00] VITALS: BP 129/62
[2018-04-24 20:00] VITALS: BP 121/70
--- NOTE | 2018-04-24 20:24 | NUR ---
PT C/O RESTLESSNESS/INSOMNIA S/S. RESTORIL GIVEN AT THIS TIME. WILL MONITOR EFFECTIVENESS. CALL LIGHT IN REACH.
--- NOTE | 2018-04-24 21:24 | NUR ---
RESTORIL EFFECTIVE PER PT
[2018-04-25] VITALS: BP 120/56
--- NOTE | 2018-04-25 03:40 | NUR ---
24 HR chart check completed.
[2018-04-25 06:13] LABS: BASO % 0.5 % (0.0-1.0); EOS # 0.3 10*3/uL (0.0-0.4); EOS % 4.7 % (1.0-4.0); HEMATOCRIT 31.5 % (37.0-47.0); HEMOGLOBIN 10.4 g/dl (12.0-16.0); LYMPH # 1.5 10*3/uL (1.3-4.4); LYMPH % 24.4 % (27.0-41.0); MEAN CELL VOLUME 92.1 fl (81.0-99.0); MEAN CORPUSCULAR HGB 30.4 pg (27.0-31.0); MEAN PLATELET VOLUME 9.3 fl (9.6-12.3); MONO # 0.7 10*3/uL (0.1-1.0); NEUT # 3.6 10*3/uL (2.3-7.9); NEUT % 58.2 % (47.0-73.0); PLATELET COUNT AUTOMATED 276 10*3/uL (130-400); RED BLOOD COUNT 3.42 10*6/uL (4.10-5.10); RED CELL DISTRI WIDTH 13.6 % (0-14.5); WHITE BLOOD COUNT 6.2 10*3/uL (4.8-10.8)
[2018-04-25 06:30] LABS: CHLORIDE 105 mmol/L (98-107); POTASSIUM 3.1 mmol/L (3.5-5.1); SODIUM 141 mmol/L (136-145)
[2018-04-25 06:42] LABS: ALBUMIN 2.9 gm/dl (3.1-4.5); ALKALINE PHOSPHATASE 58 U/L (45-117); BUN 11 mg/dl (7-24); CREATININE 0.46 mg/dL (0.55-1.02); SGOT/AST 21 IU/L (3-35); SGPT/ALT 22 U/L (12-78); TOTAL PROTEIN 6.3 gm/dL (6.4-8.2)
--- NOTE | 2018-04-25 06:43 | NUR ---
PT GIVEN NORCO FOR C/O HEADACHE AND GENERALIZED PAIN. WILL HAVE DAYSHIFT NURSE FOLLOW UP ON EFFECTIVENESS OF MEDICATION.
--- NOTE | 2018-04-25 07:22 | NUR ---
PER PT, NORCO WAS EFFECTIVE. PT REPORTING RELIEF AT THIS TIME. CALL LIGHT IN REACH. NO FURTHER COMPLAINTS AT THIS TIME.
[2018-04-25 08:00] VITALS: BP 115/61
[2018-04-25 12:00] VITALS: BP 98/46
--- NOTE | 2018-04-25 13:00 | NUR ---
PHYSICAL THERAPY PT EVAL COMPLETED ON LEVEL 5 TODAY: FULL EVALUATION TO FOLLOW. RECOMMEND PT WHILE HERE TO ADDRESS DECREASED STRENGTH, ENDURANCE AND BALANCE AND THUS DECREASED FUNCTIONAL MOBILITY. PT EVAL IS MODERATE COMPLEXITY BASED ON CHART REVIEW, TEST RESULTS AND EVALUATION: [id number]. D/C RECOMMENDATIONS ARE HOME WITH FAMILY AND RESUMPTION OF HOME HEALTH SERVICES. THANK YOU FOR REFERRAL NORRIS BETTS PT
--- NOTE | 2018-04-25 17:32 | NUR ---
NO FURTHER COMPLAINTS OF NAUSEA AT THIS TIME. PT TOLERATING SALTINE CRACKERS WELL. FAMILY ASKING TO ADVANCE DIET. EXPLAINED BENEFITS OF CURRENT ORDERS AND THAT PHYSICIANS WILL REASSES IN AM FOR DIETARY NEEDS. CALL LIGHT IN REACH. PT RESTING IN BED WITH IVF GOING.
[2018-04-25 18:36] VITALS: BP 112/56
[2018-04-25 20:00] VITALS: BP 101/55
[2018-04-26] VITALS: BP 107/52
[2018-04-26 06:50] LABS: BASO % 0.6 % (0.0-1.0); EOS # 0.4 10*3/uL (0.0-0.4); EOS % 6.2 % (1.0-4.0); HEMATOCRIT 29.3 % (37.0-47.0); HEMOGLOBIN 9.8 g/dl (12.0-16.0); LYMPH # 1.4 10*3/uL (1.3-4.4); LYMPH % 22.3 % (27.0-41.0); MEAN CELL VOLUME 91.6 fl (81.0-99.0); MEAN CORPUSCULAR HGB 30.6 pg (27.0-31.0); MEAN CORPUSCULAR HGB CONC 33.4 g/dl (33.0-37.0); MEAN PLATELET VOLUME 9.5 fl (9.6-12.3); MONO # 0.6 10*3/uL (0.1-1.0); NEUT # 3.8 10*3/uL (2.3-7.9); NEUT % 60.7 % (47.0-73.0); PLATELET COUNT AUTOMATED 266 10*3/uL (130-400); RED CELL DISTRI WIDTH 13.7 % (0-14.5); WHITE BLOOD COUNT 6.3 10*3/uL (4.8-10.8)
[2018-04-26 07:02] LABS: ALBUMIN 2.9 gm/dl (3.1-4.5); ALKALINE PHOSPHATASE 61 U/L (45-117); BUN 8 mg/dl (7-24); CHLORIDE 107 mmol/L (98-107); CREATININE 0.48 mg/dL (0.55-1.02); PHOSPHOROUS 2.8 mg/dL (2.5-4.9); POTASSIUM 3.2 mmol/L (3.5-5.1); SGOT/AST 19 IU/L (3-35); SGPT/ALT 20 U/L (12-78); SODIUM 141 mmol/L (136-145); TOTAL PROTEIN 6.1 gm/dL (6.4-8.2)
--- NOTE | 2018-04-26 08:00 | NUR ---
VS STABLE, LUNGS SOUNDS CLEAR BILATERALLY, HEART SOUNDS NORMAL, YOGI, BSX4, ABDOMEN NON DISTENDED, NON TENDER, NO EDEMA NOTED AT THIS TIME, A&OX3, CAP REFILL <3 SECONDS, POSITIVE PEDAL PULSES, SKIN INTACT, WARM & DRY, DRY MUCOUS MEMBRANES. KAITLYNN BARNES SPNRCC
[2018-04-26 08:15] VITALS: BP 127/59
--- NOTE | 2018-04-26 09:44 | NUR ---
PHYSICAL THERAPY Patient is getting a bath at this time by sudent nurses at this time. Will check later. FAUSTINO MARIN JUNIOR DATA ANALYST
--- NOTE | 2018-04-26 10:48 | NUR ---
PHYSICAL THERAPY Patient is eating lunch at this time. Will check later. MECHELLE MARIN PCB DESIGN ENGINEER
--- NOTE | 2018-04-26 11:36 | NUR ---
Maintenance Shop Manager in to talk to patient. Patient states lives at HOME with GRAND DAUGHTER. There are SOME steps in the home. Physician: RASHAWN Pharmacy: [facility] Home health services: [facility] Patient's level of ADLs: MODERATE ASSIST Patient has working utilities: YES DME: CANE, WALKER CURRENTLY HAS SLING ON RIGHT ARM Follow-up physician's appointment after d/c: WILL BE MADE BY HOSPITALIST NURSE DIRECTOR ON DISCHARGE Does patient want to access PORTAL?: NO Discharge plan PT STATES SHE LIVES AT HOME WITH GRANDDAUGHTER AND HER DAUGHTER. ALSO SAYS SHE ALREADY HAS HOME HEALTH TROUGH [facility]. DENIES ANY OTHER NEEDS AT THIS TIME. WILL CONTINUE TO FOLLOW. STATES SHE WILL HAVE A RIDE AT HOME.. ERROL MENDOZA
--- NOTE | 2018-04-26 12:00 | NUR ---
PATIENT QUIETLY RESTING IN BED, NO COMPLAINTS AT THIS TIME, WILL CONTINUE TO ASSESS. KAITLYNN BARNES SPERNESTINACC
[2018-04-26 12:54] VITALS: BP 113/53
--- NOTE | 2018-04-26 13:09 | NUR ---
PHYSICAL THERAPY Patient has nausea and stomach issues right now. Patient wants to wait to have therapy till later this afternoon. Will check back later. MECHELLE MARIN STRAP CUTTER
--- NOTE | 2018-04-26 15:20 | NUR ---
Patient eating dinner. OTR will attempt at a later date. Mercedes Padilla OTR/l
--- NOTE | 2018-04-26 15:31 | NUR ---
PHYSICAL THERAPY Patient presented to therapy in supine with head of bed elevated and no bed alarm attached and daughter visiting in room. Patient agrees to therapy session. Patient was identified by name and . Patient performed supine to sitting at EOB transfer with MIN A X 1. Patient had to sit at EOB for some time with CGA to MIN A X 1 ,due to increased dizziness and lite-headedness upon sitting up. Patient's dizziness passed after a short time. Patient transferred STS from EOB with CGA X 1. Patient ambulated with CLAY PLANT TREATER X 1 with no assistive device and 4 liters of spO2 attached via nasal canula, as well as IV LINE infusing, for 100' x 1 with no LOB,dizziness, SOB or other major difficutly. Patient performed sitting at EOB, bilateral LE ther ex 2 x 10 reps each in all planes of movement for strengthening the LEs in order to improve patient's functional mobility. Patient transferred back to supine in bed with MIN A X 1. Patient was left in supine in bed with head of bed elevated, call light within reach, and bed alarm activated. Patient was left with daughter visiting in the room with patient. Patient was 1:1 with this TRAINING AND DEVELOPMENT SPECIALIST for 23 minutes total. MECHELLE MARIN TRAINING AND DEVELOPMENT SPECIALIST
[2018-04-26 16:00] VITALS: BP 142/63
--- NOTE | 2018-04-26 19:45 | NUR ---
REPORT OBTAINED FROM DAY SHIFT RN. THE PATIENT IS RESTING IN BED AT THIS TIME AND DENIES ANY PAIN OR DISCOMFORT. INITIAL ASSESSMENT COMPLETED. RESPIRATIONS ARE EASY AND NONLABORED ON 4L NC. SHE DENIES ANY SHORTNESS OF BREATH AT REST. NORMAL SALINE IS RUNNING AT 80mL/HR INTO LT ARM IV WITH NO PROBLEM. BED IS LOCKED AND IN LOWEST POSITION. WILL CONTINUE TO MONITOR PT.
[2018-04-26 20:00] VITALS: BP 115/54
[2018-04-27] VITALS: BP 115/55
[2018-04-27 08:00] VITALS: BP 127/54
[2018-04-27] MEDS ORDERED: Meclizine25 MG PO (10:29)
--- NOTE | 2018-04-27 11:40 | NUR ---
Discharge instructions reviewed with patient/family. Patient receptive and verbalizes understanding. Follow-up care arranged. Written instructions given to patient/family. MARIANELA CASTREJON
--- NOTE | 2018-04-27 11:48 | NUR ---
REFERRAL FAXED TO PENDING SALE TO [facility].
--- NOTE | 2018-04-27 11:56 | NUR ---
[facility] ACCOMPANIED BY [facility] FOR TRANSPORT HOME BY PRIVATE VEHICLE WITH HER DAUGHTER.
--- NOTE | 2018-04-27 12:27 | NUR ---
PHYSICAL THERAPY CO-SIGN I approve of the Phyical Therapy notes written above. OLEGARIO GUZMAN PT
== END 2018-04-27 11:56 | disposition home health service (06) | DRG 392 ==
LOC: ED 13:49 → 5E 19:02 → EDHOLD 19:02 → 5E 19:52
PROVIDERS: Internal Medicine; Nurse Practitioner Family; ADMIT Internal Medicine
DX: K52.9 Noninfective gastroenteritis and colitis, unspecified (principal); J96.11 Chronic respiratory failure with hypoxia; I10 Essential (primary) hypertension; E78.5 Hyperlipidemia, unspecified; E66.3 Overweight; E11.65 Type 2 diabetes mellitus with hyperglycemia; R53.1 Weakness; D64.9 Anemia, unspecified; M85.80 Other specified disorders of bone density and structure, unspecified site; W18.30XA Fall on same level, unspecified, initial encounter; Y93.89 Activity, other specified; Y92.89 Other specified places as the place of occurrence of the external cause; Y99.8 Other external cause status; Z99.81 Dependence on supplemental oxygen; Z83.3 Family history of diabetes mellitus; Z82.49 Family history of ischemic heart disease and other diseases of the circulatory system; Z80.9 Family history of malignant neoplasm, unspecified; Z79.899 Other long term (current) drug therapy; Z68.27 Body mass index [BMI] 27.0-27.9, adult

== ENCOUNTER → 2018-05-21 | Outpatient (CLI) | payer OTHER ==
[~2018-05-21] MED LIST changes: +Meclizine25 MG PO; +TRAMADOL HCL50 MG PO; +ZESTORETIC 10-1 EACH PO; +ZESTRIL10 MG PO
== END | disposition home or self-care (01) ==
LOC: ORTHO 02:56
DX: S42.211D Unspecified displaced fracture of surgical neck of right humerus, subsequent encounter for fracture with routine healing (principal); X58.XXXD Exposure to other specified factors, subsequent encounter

== ENCOUNTER → 2018-06-23 | Outpatient (CLI) | payer OTHER | END | disposition home or self-care (01) | LOC: ORTHO 02:07 | DX: S42.211D Unspecified displaced fracture of surgical neck of right humerus, subsequent encounter for fracture with routine healing (principal); M81.0 Age-related osteoporosis without current pathological fracture; X58.XXXD Exposure to other specified factors, subsequent encounter ==

== ENCOUNTER 2019-04-11 12:20 | Inpatient (IN) | payer OTHER ==
[~2019-04-11] VITALS: Ht 157.5 cm; Wt 59.1 kg
[2019-04-11 12:43] VITALS: BP 127/75
[2019-04-11 12:57] LABS: BASO # 0.1 10*3/uL (0.0-0.1); BASO % 0.6 % (0.0-1.0); EOS # 0.2 10*3/uL (0.0-0.4); EOS % 2.7 % (1.0-4.0); HEMATOCRIT 37.7 % (37.0-47.0); HEMOGLOBIN 12.7 g/dl (12.0-16.0); LYMPH # 1.7 10*3/uL (1.3-4.4); LYMPH % 20.6 % (27.0-41.0); MEAN CELL VOLUME 89.5 fl (81.0-99.0); MEAN CORPUSCULAR HGB 30.2 pg (27.0-31.0); MEAN CORPUSCULAR HGB CONC 33.7 g/dl (33.0-37.0); MEAN PLATELET VOLUME 10.1 fl (9.6-12.3); MONO # 1.1 10*3/uL (0.1-1.0); NEUT # 4.9 10*3/uL (2.3-7.9); NEUT % 61.2 % (47.0-73.0); PLATELET COUNT AUTOMATED 152 10*3/uL (130-400); RED BLOOD COUNT 4.21 10*6/uL (4.10-5.10); RED CELL DISTRI WIDTH 14.1 % (0-14.5)
[2019-04-11 13:08] LABS: ACT PARTIAL THROMBO TIME 27.2 SECONDS (20.0-32.1)
[2019-04-11 13:14] LABS: ALBUMIN 3.4 gm/dl (3.1-4.5); ALKALINE PHOSPHATASE 66 U/L (45-117); BUN 12 mg/dl (7-24); CHLORIDE 101 mmol/L (98-107); CREATININE 0.62 mg/dL (0.55-1.02); POTASSIUM 3.8 mmol/L (3.5-5.1); SGOT/AST 65 IU/L (3-35); SGPT/ALT 18 U/L (12-78); SODIUM 136 mmol/L (136-145); TOTAL PROTEIN 7.6 gm/dL (6.4-8.2)
[2019-04-11 13:21] LABS: TROPONIN I < 0.015 ng/ml (<0.045)
[2019-04-11 13:52] VITALS: BP 121/61
[2019-04-11 14:42] VITALS: BP 98/60
[2019-04-11 16:02] VITALS: BP 115/65
--- NOTE | 2019-04-11 16:50 | NUR ---
UNABLE TO TAKE PT UPSTAIRS FOR ADMISSION AT THIS TIME PT AT CT SCAN.
--- NOTE | 2019-04-11 17:04 | NUR ---
PT BACK FROM CT SCAN AND ASSISTED TO RESTROOM.
--- NOTE | 2019-04-11 17:10 | NUR ---
A 84, admitted to 4E, under the services of JOHANNY Saez DO with a diagnosis of CHF. Chief complaint is SOB. Patient arrived via stretcher from ER. Monitor applied. Initial assessment completed. Vital signs taken and recorded. JOHANNY SAEZ DO notified of admission to the unit. Orders received. See assessment for past medical history, medications and allergies. Patient and/or family oriented to unit. [facility] visitation policy reviewed. Clothing/patient valuable form completed. MALISSA RO
[2019-04-11] MEDS ORDERED: LISINOPRIL5 MG PO (17:32)
[2019-04-11] MEDS ORDERED: METFORMIN HYDR500 MG PO (17:32)
[2019-04-11 18:00] VITALS: BP 117/62
--- NOTE | 2019-04-11 19:10 | NUR ---
REPORT RECEIVED. PT LYING IN BED AT THIS TIME. NO COMPLAINTS VOICED. CALL LIGHT IN REACH
--- NOTE | 2019-04-11 19:28 | NUR ---
DR HERRERA CALLED AND NOTIFIED OF [facility] REPORT
[2019-04-11 20:54] VITALS: BP 108/65
[2019-04-12] VITALS: BP 103/68
--- NOTE | 2019-04-12 01:10 | NUR ---
TYLENOL GIVEN PER ORDER FOR COMPLAINTS OF 9/10 HEADACHE. WILL MONITOR EFFECTIVENESS. CALL LIGHT IN REACH
--- NOTE | 2019-04-12 02:30 | NUR ---
TYLENOL APPEARS EFFECTIVE, PT SLEEPING AT THIS TIME.
[2019-04-12 07:09] LABS: BASO % 0.4 % (0.0-1.0); EOS # 0.2 10*3/uL (0.0-0.4); EOS % 3.1 % (1.0-4.0); HEMATOCRIT 34.8 % (37.0-47.0); HEMOGLOBIN 11.4 g/dl (12.0-16.0); LYMPH # 1.3 10*3/uL (1.3-4.4); LYMPH % 19.4 % (27.0-41.0); MEAN CELL VOLUME 89.2 fl (81.0-99.0); MEAN CORPUSCULAR HGB 29.2 pg (27.0-31.0); MEAN CORPUSCULAR HGB CONC 32.8 g/dl (33.0-37.0); MEAN PLATELET VOLUME 9.9 fl (9.6-12.3); MONO % 13.9 % (3.0-9.0); NEUT # 4.2 10*3/uL (2.3-7.9); NEUT % 61.9 % (47.0-73.0); PLATELET COUNT AUTOMATED 127 10*3/uL (130-400); WHITE BLOOD COUNT 6.8 10*3/uL (4.8-10.8)
[2019-04-12 07:20] LABS: BUN 12 mg/dl (7-24); CHLORIDE 101 mmol/L (98-107); CHOLESTEROL 130 mg/dL (<200); CREATININE 0.51 mg/dL (0.55-1.02); PHOSPHOROUS 4.1 mg/dL (2.5-4.9); POTASSIUM 3.3 mmol/L (3.5-5.1); SODIUM 138 mmol/L (136-145); TRIGLYCERIDES 106 mg/dl (<150); VLDL CHOLESTEROL 21 mg/dL (6-40)
--- NOTE | 2019-04-12 07:30 | NUR ---
PT RESTING IN BED. VOICES NO CONCERNS AT THIS TIME. RESPS EASY AND NON LABORED. NO S/S OF DISTRESS NOTED. VSS. 4L OXYGEN INTACT. WHITE BOARD UPDATED CALL LIGHT WITHIN REACH. BED ALARM ON
[2019-04-12 07:31] LABS: FREE T4 0.81 ng/dl (0.76-1.46); HDL CHOLESTEROL 42 mg/dl (40-60); LDL CHOLESTEROL 67 mg/dL (9-159)
[2019-04-12 07:44] LABS: ACT PARTIAL THROMBO TIME 28.3 SECONDS (20.0-32.1)
[2019-04-12 07:46] LABS: VITAMIN D, 25-HYDROXY 62.9 ng/mL (30-100)
[2019-04-12 08:00] VITALS: BP 118/70
--- NOTE | 2019-04-12 08:03 | NUR ---
DR DALTON NOTIFIED OF NEW CONSULT
--- NOTE | 2019-04-12 08:57 | NUR ---
Shift chart check completed.
--- NOTE | 2019-04-12 11:03 | NUR ---
Social Service Assistant in to talk to patient. Patient states lives at HOME with DAUGHTER. There are 12 steps in the home. Physician: CARLOS Pharmacy: [facility] Home health services: NONE Patient's level of ADLs: MINIMAL ASSIST Patient has working utilities: YES DME: [employer] WHEN NEEDED, [employer], [employer] Follow-up physician's appointment after d/c: WILL BE MADE BY HOSPITALIST NURSE DIRECTOR ON DISCHARGE Does patient want to access PORTAL?: NO Discharge plan PT LIVES AT HOME WITH DAUGHTER WHO ASSIST HER NEEDED. PT AND DAUGHTER STATE THEY WANT HER TO RETURN HOME WHEN MEDICALLY STABLE AND WILL HAVE NO NEW NEEDS. TALKED WITH THEM ABOUT HOME HEALTH BUT THEY REFUSE AT THIS TIME. WILL CONTINUE TO FOLLOW. WILL HAVE A RIDE HOME PER DAUGHTER.. ERROL MENDOZA
[2019-04-12 12:00] VITALS: BP 116/72
[2019-04-12 16:00] VITALS: BP 91/43
[2019-04-12 20:00] VITALS: BP 93/42
--- NOTE | 2019-04-12 21:18 | NUR ---
PT'S FAMILY MEMBER CALLED AND UPSET THAT NO ONE NOTIFIED HER OF HER MOTHER BEING MOVED ROOMS.
[2019-04-13] VITALS: BP 125/75
[2019-04-13 08:00] VITALS: BP 124/63
--- NOTE | 2019-04-13 08:10 | NUR ---
PT RESTING IN BED. NO DISTRESS NOTED/ WILL MONITOR
--- NOTE | 2019-04-13 11:00 | NUR ---
PHYSICAL THERAPY Idalia completed moderate level of complexity [address] recomend SNF however per pt/dgtr will go home recomend HH. PT to work on transfers, amb w fww, strengthening, balance and safety. Report to follow Sonja Tovar PT
[2019-04-13 12:00] VITALS: BP 92/53
--- NOTE | 2019-04-13 12:04 | NUR ---
PT MEDICATED WITH MORPHINE IV FOR C.O GEN PAIN . PT RATES PAIN 8/10 WILL MONITOR
--- NOTE | 2019-04-13 13:51 | NUR ---
PT CONTINUES TO DENY NEEDS ON DISCHARGE. PT AND DAUGHTER STATES SHE WILL RETURN HOME. PT IS FOR BRONCH TOMORROW. WILL CONTINUE TO FOLLOW.
[2019-04-13 16:00] VITALS: BP 97/51
[2019-04-13 20:00] VITALS: BP 93/53
--- NOTE | 2019-04-13 21:25 | NUR ---
PT IS DENYING NEED FOR PAIN MEDICATION AT THIS TIME. STATES SHE DOES NOT WANT MORPHINE AND WILL JUST TAKE THE NORCO THAT IS SCHEDULED FOR MIDNIGHT.
--- NOTE | 2019-04-13 23:50 | NUR ---
PATIENT STATES SHE DOES NOT NEED ANY PAIN MEDICATIONS. DOES NOT WANT SCHEDULED NORCO. NORCO WASTED IN PYXIS. ASSISTED TO RR AND REPOSITION IN BED. CALL LIGHT IN REACH, BED ALARM MAINTAINED FOR SAFETY.
[2019-04-14] VITALS (9 sets, daily range): BP systolic 89–122; BP diastolic 42–69
--- NOTE | 2019-04-14 11:45 | NUR ---
Family in room. Patient not yet returned from bronchoscopy testing. OTR will recheck at a later date. Rubina Padilla OTr/l
--- NOTE | 2019-04-14 12:08 | NUR ---
PHYSICAL THERAPY PATIENT WAS NOT IN HER ROOM AT 11:07 AM. WILL CHECK BACK LATER. MECHELLE MARIN PHYSIOTHERAPY AIDE
--- NOTE | 2019-04-14 12:54 | NUR ---
PT HAVING A BRONCHSCOPY TODAY.
--- NOTE | 2019-04-14 15:59 | NUR ---
PHYSICAL THERAPY PATIENT DECLINED THERAPY SESSION THIS AFTERNOON BECUASE SHE WAS STILL GROGGY AND TIRED FROM THE BRONCH SHE HAD EARLIER TODAY. WILL CHECK BACK WITH PATIENT TOMORROW. MECHELLE MARIN EXPANDER MACHINE OPERATOR
--- NOTE | 2019-04-14 20:00 | NUR ---
MORPHINE GIVEN PER PATIENT REQUEST FOR COMPLAINTS OF BACK PAIN RATED 9/10. WILL ASSESS EFFECTIVENESS.
--- NOTE | 2019-04-14 22:38 | NUR ---
PATIENT'S DAUGHTER CALLED. PASSWORD PROVIDED. UPDATED HER ON HOW HER MOTHER WAS DOING.
[2019-04-15] VITALS: BP 125/54
--- NOTE | 2019-04-15 03:28 | NUR ---
24 HR chart check completed.
[2019-04-15 08:00] VITALS: BP 122/60
[2019-04-15 08:02] LABS: BASO % 0.5 % (0.0-1.0); EOS # 0.4 10*3/uL (0.0-0.4); EOS % 5.2 % (1.0-4.0); HEMATOCRIT 33.4 % (37.0-47.0); HEMOGLOBIN 10.7 g/dl (12.0-16.0); LYMPH # 1.5 10*3/uL (1.3-4.4); LYMPH % 17.6 % (27.0-41.0); MEAN CELL VOLUME 91.5 fl (81.0-99.0); MEAN CORPUSCULAR HGB 29.3 pg (27.0-31.0); MEAN PLATELET VOLUME 10.6 fl (9.6-12.3); MONO # 0.9 10*3/uL (0.1-1.0); MONO % 10.9 % (3.0-9.0); NEUT # 5.4 10*3/uL (2.3-7.9); NEUT % 65.2 % (47.0-73.0); PLATELET COUNT AUTOMATED 108 10*3/uL (130-400); RED BLOOD COUNT 3.65 10*6/uL (4.10-5.10); RED CELL DISTRI WIDTH 13.9 % (0-14.5); WHITE BLOOD COUNT 8.3 10*3/uL (4.8-10.8)
[2019-04-15 08:58] LABS: CREATININE 0.49 mg/dL (0.55-1.02)
[2019-04-15] MEDS ORDERED: NORCO 7.5-3251 EACH PO (10:57)
[2019-04-15] MEDS ORDERED: AVPAK AZITHROM250 MG PO (10:57)
[2019-04-15 12:00] VITALS: BP 107/50
--- NOTE | 2019-04-15 12:37 | NUR ---
PT CONTINUES TO DENY NEEDS ON DISCHARGE. WILL CONTINUE TO FOLLOW.
--- NOTE | 2019-04-15 13:20 | NUR ---
DISCHARGE INSTRUCTIONS REVIEWED. DIPTI PRAJAPATI PT PROVIDED PRESCRIPTIONS TO BE FILLED BY HER. TRANSPORTED OUT VIA WHEELCHAIR BY JENNIFFER.
--- NOTE | 2019-04-15 16:36 | NUR ---
PHYSICAL THERAPY CO-SIGN I approve of the Physical Therapy notes written above. Sonja Tovar PT
[2019-04-15 17:09] LABS: ACID FAST SPEC PROCESSING Concentration (.)
== END 2019-04-15 13:20 | disposition home or self-care (01) | DRG 177 ==
LOC: ED 12:20 → 5E 15:39 → 4E 15:39 → EDHOLD 15:39 → 5E 15:47 → EDHOLD 15:47 → 4E 16:44 → 5E 04-12 18:41
PROVIDERS: Emergency Medicine; Internal Medicine; Internal Medicine Critical Care Medicine; ADMIT Family Medicine
PROC: 0BC48ZZ Extirpation of Matter from Right Upper Lobe Bronchus, Via Natural or Artificial Opening Endoscopic (ICD-10-PCS; principal; 2019-04-14)
PROC: 0B918ZZ Drainage of Trachea, Via Natural or Artificial Opening Endoscopic (ICD-10-PCS; principal; 2019-04-14)
PROC: 0BB88ZX Excision of Left Upper Lobe Bronchus, Via Natural or Artificial Opening Endoscopic, Diagnostic (ICD-10-PCS; principal; 2019-04-14)
PROC: 0BC98ZZ Extirpation of Matter from Lingula Bronchus, Via Natural or Artificial Opening Endoscopic (ICD-10-PCS; principal; 2019-04-14)
PROC: 0BC58ZZ Extirpation of Matter from Right Middle Lobe Bronchus, Via Natural or Artificial Opening Endoscopic (ICD-10-PCS; principal; 2019-04-14)
PROC: 0BC68ZZ Extirpation of Matter from Right Lower Lobe Bronchus, Via Natural or Artificial Opening Endoscopic (ICD-10-PCS; principal; 2019-04-14)
PROC: 0BB98ZX Excision of Lingula Bronchus, Via Natural or Artificial Opening Endoscopic, Diagnostic (ICD-10-PCS; principal; 2019-04-14)
PROC: 0BC88ZZ Extirpation of Matter from Left Upper Lobe Bronchus, Via Natural or Artificial Opening Endoscopic (ICD-10-PCS; principal; 2019-04-14)
DX: J69.0 Pneumonitis due to inhalation of food and vomit (principal); I50.31 Acute diastolic (congestive) heart failure; J18.9 Pneumonia, unspecified organism; J43.2 Centrilobular emphysema; R91.8 Other nonspecific abnormal finding of lung field; E87.6 Hypokalemia; I50.9 Heart failure, unspecified; F17.210 Nicotine dependence, cigarettes, uncomplicated; I11.0 Hypertensive heart disease with heart failure; E78.5 Hyperlipidemia, unspecified; M85.80 Other specified disorders of bone density and structure, unspecified site; E03.9 Hypothyroidism, unspecified; M54.9 Dorsalgia, unspecified; E11.65 Type 2 diabetes mellitus with hyperglycemia; D69.6 Thrombocytopenia, unspecified; R74.0 Nonspecific elevation of levels of transaminase and lactic acid dehydrogenase [LDH]; Z79.899 Other long term (current) drug therapy; Z71.6 Tobacco abuse counseling